=== PATIENT | male | born 1950 | race Caucasian/White ===

== ENCOUNTER → 2017-08-18 | Day surgery (SDC) | payer MEDICARE ==
[~2017-08-18] MED LIST: ASPI1TAB31 PO; ATROPINE 0.5 MG/5 ML DISP.SYRIN. IV PRN; BUPR300T3 PO; DULO60CA6 PO; IV RINGERS SOLUTION,LACTATED 1,000 ML BAG. IV ONE; IV RINGERS SOLUTION,LACTATED 1,000 ML IV ONE; IV RINGERS SOLUTION,LACTATED 1,000 ML IV SCH; LIDOCAINE 2% PF Vial for OR 5 ML VIAL. ONE; METO25TA4 PO; NALOXONE 0.4 MG/ML VIAL. IV PRN; ONDANSETRON PF 4 MG/2 ML VIAL. IV PRN; PRAV40TA2 PO; PROPOFOL 40 ML IV ONE; SUMA100T3 PO
[2017-08-18 09:05] VITALS: BP 144/90
== END ==
LOC: SURG 06:52
PROVIDERS: ATTEND Internal Medicine Gastroenterology
DX: Z12.11 Encounter for screening for malignant neoplasm of colon (principal); K57.30 Diverticulosis of large intestine without perforation or abscess without bleeding; G43.909 Migraine, unspecified, not intractable, without status migrainosus; E78.5 Hyperlipidemia, unspecified
CPT/HCPCS: 45378; J2704; J7120; J2001

== ENCOUNTER → 2018-09-13 | Outpatient (CLI) | payer MEDICARE ==
[2017-08-18 09:05] VITALS: BP 144/90
[~2018-09-13] MED LIST changes: -ATROPINE 0.5 MG/5 ML DISP.SYRIN. IV PRN; +IOHEXOL 240 MG/ML 50ML VIAL. ONE; +IOHEXOL 240 MG/ML 50ML VIAL. PO ONE; -IV RINGERS SOLUTION,LACTATED 1,000 ML BAG. IV ONE; -IV RINGERS SOLUTION,LACTATED 1,000 ML IV ONE; -IV RINGERS SOLUTION,LACTATED 1,000 ML IV SCH; -LIDOCAINE 2% PF Vial for OR 5 ML VIAL. ONE; -NALOXONE 0.4 MG/ML VIAL. IV PRN; -ONDANSETRON PF 4 MG/2 ML VIAL. IV PRN; -PROPOFOL 40 ML IV ONE
--- NOTE | 2018-09-13 11:12 | RAD ---
PQRS Compliance Statement: One or more of the following individualized dose reduction techniques were utilized for this examination: 1. Automated exposure control 2. Adjustment of the mA and/or kV according to patient size 3. Use of iterative reconstruction technique CT ABD PEL W/ORAL CONTRST ONLY Clinical Indication: INCREASING ABDOMINAL PAIN X 1 WEEK. VOMITING YESTERDAY Comparison: None. TECHNIQUE: Helical CT imaging of the abdomen and pelvis performed after oral contrast. IV contrast is not administered. Findings: Evaluation of solid organs is limited without IV contrast, decreasing sensitivity for detection of pathology. Linear opacities in the bilateral lung bases may be discoid atelectasis or scarring. Cardiac size normal. The liver, gallbladder, spleen, pancreas, adrenal glands, and abdominal aorta caliber are normal. There is bilateral perinephric stranding, can be a normal variant in a patient of this age. There is no renal or ureteral calculus. There is no hydronephrosis. The stomach is normal. No dilated small bowel. There is severe sigmoid colon diverticulosis. There is descending colon diverticulosis. There is an epiploic appendage of the midsigmoid colon with a very thin soft tissue density rim. No appreciable inflammation is seen. Finding well seen on image [id number]. There is no colon wall thickening. The appendix is normal. No abdominal adenopathy or free fluid. There is mild diffuse urinary bladder wall thickening. The prostate and seminal vesicles are normal. There is no pelvic free fluid. There is mild left convexity lumbar scoliosis. There is vacuum disc phenomenon, disc space narrowing, and endplate irregularity and sclerosis along the inner curvature of the scoliosis at L2/L3 and L3/L4. IMPRESSION: 1. Mild urinary bladder wall thickening suggestive of nonspecific cystitis or chronic bladder outlet obstruction. 2. Epiploic appendage of the mid sigmoid colon. There is no surrounding inflammation to suggest active appendagitis. 3. No obstructive uropathy. 4. Discoid atelectasis or scarring in the bilateral lung bases. 5. Severe distal colon diverticulosis without diverticulitis. Electronically signed by: James Rogers MD (09/13/2018 11:09 AM) [id number]
[2018-09-15 17:40] LABS: BASO # 0.1 x10^3/uL (0.0-0.2); BASO % 1 % (0-3); EOS # 0.2 x10^3/uL (0.0-0.7); EOS % 4 % (0-3); HEMATOCRIT 46.3 % (39.0-53.0); HEMOGLOBIN 15.8 g/dL (13.0-17.5); LYMPH # 2.6 x10^3/uL (1.0-4.8); LYMPH % 42 % (24-48); MEAN CORPUSCULAR HEMOGLOBIN 30 pg (25-35); MEAN CORPUSCULAR HGB CONC 34 g/dL (31-37); MEAN CORPUSCULAR VOLUME 88 fL (79-100); MONO # 0.7 x10^3/uL (0.0-1.1); MONO % 11 % (0-9); NEUT # 2.5 x10^3uL (1.8-7.7); NEUT % 41 % (31-73); PLATELET COUNT 268 x10^3/uL (140-400); RED BLOOD COUNT 5.24 x10^6/uL (4.30-5.70); RED CELL DISTRIBUTION WIDTH 13.6 % (11.5-14.5); WHITE BLOOD COUNT 6.2 x10^3/uL (4.0-11.0)
[2018-09-15 17:43] LABS: ALBUMIN 3.6 g/dL (3.4-5.0); ALBUMIN/GLOBULIN RATIO 1.1 (1.0-1.7); CALCIUM 8.8 mg/dL (8.5-10.1); GFR 74.5; POTASSIUM 3.7 mmol/L (3.5-5.1); TOTAL BILIRUBIN 0.3 mg/dL (0.2-1.0)
[2018-09-15 23:12] LABS: THYROXINE 5.9 ug/dL (4.5-12.0)
[2018-09-19 12:26] LABS: PSA FREE 0.15 ng/mL
== END | disposition home or self-care (01) ==
LOC: CT 09:07
PROVIDERS: ATTEND Nurse Practitioner Family
DX: K57.30 Diverticulosis of large intestine without perforation or abscess without bleeding (principal); M48.061 Spinal stenosis, lumbar region without neurogenic claudication; M41.86 Other forms of scoliosis, lumbar region
CPT/HCPCS: 74176; Q9966; 36415; 80053; 82150; 83690; 84153; 84154; 84436; 84443; 85025